=== PATIENT | male | born 1955 | race Caucasian/White ===

== ENCOUNTER 2018-07-20 12:49 | Observation (INO) | payer OTHER ==
[2018-07-20 15:49] LABS: Hematocrit 42.2 % (39.6-49.0); MCH 35.9 pg (27.0-35.0); MCV 104.3 fL (80-100); MPV 8.5 fL (7.6-11.3); RBC Red Blood Cell Count 4.05 M/uL (4.33-5.43)
[2018-07-20 15:53] LABS: Protime INR 1.05
[2018-07-20] MEDS ORDERED: ACETAMINOPHEN 325 MG TABLET PO PRN (16:16)
[2018-07-20] MEDS ORDERED: ONDANSETRON 4 MG/2 ML VIAL IV PRN (16:17)
[2018-07-20] MEDS ORDERED: POLYETHYL GLY 3350 17 GM/DOSE PO PRN (16:17)
[2018-07-20] MEDS ORDERED: DIPHENHYDRAMINE 25 MG TAB/CAP PO PRN (16:17)
[2018-07-20] MEDS ORDERED: LOPERAMIDE HCL 2 MG CAPSULE PO PRN (16:17)
[2018-07-20] MEDS ORDERED: ONDANSETRON 4 MG (ODT) TAB PO PRN (16:17)
[2018-07-20 16:36] LABS: Albumin 3.3 g/dL (3.4-5.0); Bilirubin Direct 0.3 mg/dL (0-0.2); Bilirubin Total 0.7 mg/dL (0.2-1.0); Magnesium 1.6 mg/dL (1.8-2.4); Phosphorus 3.3 mg/dL (2.5-4.9); Protein, Total 6.9 g/dL (6.4-8.2); Thyroid Stimulating Hormone 1.84 uIU/mL (0.360-3.740)
[2018-07-20] MEDS ORDERED: NACHLORIDE 0.45% 1,000 ML IV SCH (17:00)
[2018-07-20 17:11] LABS: Urine Appearance CLEAR; Urine Bilirubin NEGATIVE (NEG); Urine Blood NEGATIVE (NEG); Urine Color DK YELLOW; Urine Glucose NEGATIVE (NEG); Urine Protein NEGATIVE (NEG); Urine Specific Gravity 1.025 (1.005-1.030)
[2018-07-20] MEDS ORDERED: MAGNESIUM SULFATE 1 gm IVPB 1 GM/100 ML BAG IV ONE (17:12)
[2018-07-20 17:18] LABS: Urine Microscopic Reflex NO UMIC
--- NOTE | 2018-07-20 18:58 | RAD REPORT ---
EXAM DESCRIPTION: RAD - Chest Pa And Lat (2 Views) - 07/20/2018 6:52 pm CLINICAL HISTORY: Shortness of breath COMPARISON: February 2013 TECHNIQUE: PA and lateral views of the chest were obtained. FINDINGS: The lungs are clear of failure or infiltrate. No large mass lesion identifiable. A few sma ll granulomas are present. No gross abnormality of the mediastinum or hilum seen. Lung markings are n ot clearly different from 2013. Heart size is normal and central vasculature is within normal limit s. No pleural effusion or pneumothorax seen. No acute bony finding noted. No aortic abnormality. IMPRESSION: No acute cardiopulmonary process. No significant change from comparison.
[2018-07-20] MEDS: KCL 20 MEQ/100 mL IVPB 20 MEQ/100 ML BAG IV SCH ×2 (19:10→22:52)
--- NOTE | 2018-07-20 19:18 | RAD REPORT ---
EXAM DESCRIPTION: MRI - MRA Head Wo Cont - 07/20/2018 6:43 pm CLINICAL HISTORY: Slurred speech, left extremity weakness, CVA symptoms COMPARISON: None. TECHNIQUE: Axial and coronal 3D [id number] image acquisition was performed. 3D rotational images were generated with source and reconstruction images reviewed. Horizontal and vertical axis rotation al views generated using MIP protocol. FINDINGS: Major venous sinuses are patent. No aneurysm or vascular malformation seen. No dissection, vasculitis or other diffuse vascular process seen. Patient has a small right anterior cerebral arter y A1 segment as a normal variant. There is a very small left posterior cerebral artery P1 segment wit h most of the left [employer] supply from the large left posterior communicating artery. No stenosis or athe rosclerotic changes seen to any significant degree. IMPRESSION: MRI head examination shows no significant or suspicious finding.
--- NOTE | 2018-07-20 19:20 | RAD REPORT ---
EXAM DESCRIPTION: MRI - Brain W/Wo Cont - 07/20/2018 6:43 pm CLINICAL HISTORY: Slurred speech, left extremity weakness, CVA symptoms COMPARISON: None. TECHNIQUE: Sagittal and axial T1-weighted images were obtained. Axial PD/heavily T2-weighted and T2- FLAIR images were obtained along with axial DWI/ADC mapping sequences. Coronal heavily T2 weighted s equence obtained. Axial and coronal post-contrast T1-weighted images were also obtained. A ml Multi joseph contrast following utilized. FINDINGS: No intracranial hemorrhage or mass. In the right side of the elly there is a 10 millimeter area of abnormal diffusion signal. This has corresponding diminished signal on ADC mapping and hyper intense T2/IR signal. No other area of acute infarction seen. There is minimal chronic ischemic stewart e in the cerebral white matter. Atrophy is mild. Ventricles are in proportion to any volume loss. There is no edema or shift of midline structures. No extra-axial fluid collections. Rey-matter/whit e matter junction is preserved. Signal voids are seen as a normal finding in the major intracranial vessels. Post-contrast images show normal enhancement. No dural thickening. Mastoid air cells and paranasal sinuses are clear. 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 Minimal cerebral white matter chronic ischemic change.
--- NOTE | 2018-07-20 19:22 | RAD REPORT ---
EXAM DESCRIPTION: MRI - MRA Neck W/Wo Cont - 07/20/2018 6:43 pm COMPARISON: None. TECHNIQUE: Axial and coronal 3D [id number] image acquisition was performed. 3D rotational images were generated with source and reconstruction images reviewed. Horizontal and vertical axis rotation al views generated using MIP protocol. An 18 milliliter MultiHance contrast volume was utilized. FINDINGS: Aortic arch is bovine configuration as a normal variant. No origins stenosis. Codominant v ertebral arteries show no origins stenosis. Focal stenosis is present at the origin of the left carot id bulb. Focal bandlike 60% stenosis is seen at this site. No right-sided bulb stenosis. More distall y internal carotid artery show no suspicious findings. Bilateral common carotid artery's are unremark able. No vertebral artery abnormality. Basilar artery is unremarkable. The left carotid stenosis woul d not be a source for a brainstem CVA. IMPRESSION: Approximately 60% bandlike stenosis at the origin of the left carotid bulb. This would n ot be a cause for a brainstem CVA. The remainder the study is without significant finding.
[2018-07-20] MEDS ORDERED: PNEUMOCOCCAL VACCINE 0.5 ML IMVAC ONE (20:00)
[2018-07-20] MEDS ORDERED: INFLUENZA VACCINE (for 3y+) 0.5 ML DOSE IMVAC ONE (20:00)
[2018-07-20] MEDS ORDERED: VARENICLINE TARTRATE 0.5 MG PO PRN (20:46)
[2018-07-20] MEDS ORDERED: PANTOPRAZOLE 40MG TABLET PO SCH (21:00)
[2018-07-20] MEDS ORDERED: ENOXAPARIN 40 MG/0.4 ML SQ SCH (21:00)
[2018-07-20] MEDS ORDERED: ATORVASTATIN 20 MG TAB PO SCH (21:00)
[2018-07-20] MEDS ORDERED: CLOPIDOGREL 75 MG TABLET PO ONE (21:15)
[2018-07-20 21:50] LABS: HDL Cholesterol 49 mg/dL (40-60); LDL, Direct 90 mg/dL (100-129)
[2018-07-21 06:49] LABS: Hematocrit 40.9 % (39.6-49.0); MCH 36.5 pg (27.0-35.0); MCV 104.1 fL (80-100); MPV 8.6 fL (7.6-11.3); RBC Red Blood Cell Count 3.93 M/uL (4.33-5.43)
[2018-07-21 07:11] LABS: ALT/SGPT 30 U/L (12-78); AST/SGOT 21 U/L (15-37); Alkaline Phosphatase 62 U/L (45-117); BUN Blood Urea Nitrogen 8 mg/dL (7-18); Bicarbonate 25 mmol/L (21-32); Bilirubin Total 0.9 mg/dL (0.2-1.0); Glucose Level 88 mg/dL (74-106); Potassium 3.6 mmol/L (3.5-5.1); Protein, Total 6.4 g/dL (6.4-8.2); Sodium Level 140 mmol/L (136-145)
--- NOTE | 2018-07-21 08:11 | RAD REPORT ---
EXAM DESCRIPTION: - CP - 07/21/2018 7:33 am CLINICAL HISTORY: CVA, stroke-like symptoms, abnormal MRA neck COMPARISON: MRA carotid vasculature July 20 TECHNIQUE: Real-time sonographic evaluation of both carotid systems was performed. Rey scale and Do ppler interrogation were performed with waveform tracing bilaterally. FINDINGS: Normal high resistance waveforms are noted in both external carotid arteries. The common c arotid arteries and internal carotid arteries show normal low resistance waveforms. Mild calcified plaquing changes are present in the proximal right internal carotid artery. This does not significantly narrow the vessel lumen. Left calcified plaquing changes are present at the origin of the left ICA. This is probably the correlate to the MRA finding. MRA findings show evidence for a greater degree of stenosis than suggested by the carotid ultrasound. The bilateral carotid peak systo lic velocities and end-diastolic velocities all fall within a normal range. The bilateral ICA/ CCA ra tios are normal range as well. Not Antegrade flow seen in both vertebral arteries. Velocity values and ratios were recorded and are retained in the patient's imaging records. IMPRESSION: Calcified plaquing changes are present at the origin of the left internal carotid artery as a correlate to the left carotid MRA finding. The velocity values and ratios of the left carotid vasculature do not indicate significant stenosis. No evidence of a hemodynamically significant stenosis.
[2018-07-21] MEDS ORDERED: CLOPIDOGREL 75 MG TABLET PO SCH (09:00)
[2018-07-21] MEDS ORDERED: POTASSIUM 25 MEQ EFFERV TAB PO ONE (09:00)
[2018-07-21] MEDS ORDERED: LOSARTAN/HCTZ 50-12.5 PO SCH (09:00)
--- NOTE | 2018-07-21 09:24 | EKG ---
Test Date: 2018-07-20 Test Time: 16:13:06 Sheet Metal Operator: EWA MEASUREMENT RESULTS: Intervals: Rate: 57 NM: 134 QRSD: 126 QT: 470 QTc: 457 [place]: P: 42 NM: 134 QRS: 21 T: 3 INTERPRETIVE STATEMENTS: Sinus bradycardia Right bundle branch block Abnormal ECG Compared to ECG 03/01/2013 05:23:54 No significant changes Electronically Signed On 07-21-18 09:24:02 TREATMENT TECHNICIAN by Prashant Up
--- NOTE | 2018-07-21 12:49 | ECHO ---
HEIGHT: 5 ft 8 in WEIGHT: 186 lb 0 oz DATE OF STUDY: 07/21/[address]: Tim Galindo MD 2-DIMENSIONAL: YES M.MODE: YES DOPPLER: YES COLOR FLOW: YES TDS: NO PORTABLE: NO DEFINITY: NO BUBBLE STUDY: NO DIAGNOSIS: CEREBRAL VASCULAR ACCIDENT CARDIAC HISTORY: CATHERIZATION: YES SURGERY: NO PROSTHETIC VALVE: NO PACEMAKER: NO MEASUREMENTS (cm) DIASTOLIC (NORMALS) SYSTOLIC (NORMALS) IVSd 1.2 (0.6-1.2) LA Diam 3.8 (1.9-4.0) LVEF 57% LVIDd 4.4 (3.5-5.7) LVIDs 3.1 (2.0-3.5) %FS 29% LVPWd 1.2 (0.6-1.2) Ao Diam 3.2 (2.0-3.7) 2 DIMENSIONAL ASSESSMENT: RIGHT ATRIUM: NORMAL LEFT ATRIUM: NORMAL RIGHT VENTRICLE: NORMAL LEFT VENTRICLE: NORMAL TRICUSPID VALVE: NORMAL MITRAL VALVE: NORMAL PULMONIC VALVE: NORMAL AORTIC VALVE: NORMAL PERICARDIAL EFFUSION: NONE AORTIC ROOT: NORMAL LEFT VENTRICULAR WALL MOTION: NORMAL. DOPPLER/COLOR FLOW: MILD TRICUSPID REGURGITATION. NORMAL RIGHT VENTRICULAR SYSTOLIC PRESSURE. COMMENTS: NORMAL 2D ECHO. MILD TRICUSPID REGURGITATION. TECHNOLOGIST: LUDA ROSARIO
[2018-07-21] MEDS ORDERED: CITALOPRAM 10 MG TABLET PO SCH (20:30)
--- NOTE | 2018-07-22 07:34 | P.DS ---
Admission Date: 07/20/18 Discharge Date: 07/22/18 Disposition: ROUTINE DISCHARGE Discharge Condition: [facility] Hospital Course: MR. LANZA COMES TO ME TWO DAYS AFTER L SIDE LIP DROOP, L HAND WEAKNESS. HE IS A SMOKER. I ADMITTED HIM FOR CLINNICAL STROKE AND CONFIRMED WITH R BRAINSTEM STROKE. PLACED HIM ON PLAVIX. HE HAS ALREADY RECOVERED SIGNIFICANTLY. HE IS STABLE TO GO HOME. NOW HE IS AFRAID ENOUGH TO QUIT SMOKING. UNTIL NOW EVEN CHANTIX DID NOT WORK. Vital Signs/Physical Exam: Temp Pulse Resp BP Pulse Ox 97 F 61 18 155/96 H 94 07/21/18 08:00 07/21/18 08:00 07/21/18 08:00 07/21/18 08:00 07/21/18 08:00 Laboratory Data at Discharge: WBC 6.4 K/uL (4.3-10.9) 07/21/18 06:11 Hgb 14.3 g/dL (13.6-17.9) 07/21/18 06:11 Hct 40.9 % (39.6-49.0) 07/21/18 06:11 Plt Count 141 K/uL (152-406) L 07/21/18 06:11 PT 12.4 SECONDS (9.5-12.5) 07/20/18 15:25 INR 1.05 07/20/18 15:25 APTT 28.4 SECONDS (24.3-36.9) 07/20/18 15:25 Sodium 140 mmol/L (136-145) 07/21/18 06:11 Potassium 3.6 mmol/L (3.5-5.1) 07/21/18 06:11 BUN 8 mg/dL (7-18) 07/21/18 06:11 Creatinine 0.80 mg/dL (0.55-1.3) 07/21/18 06:11 Glucose 88 mg/dL (74-106) 07/21/18 06:11 Phosphorus 3.3 mg/dL (2.5-4.9) 07/20/18 15:25 Magnesium 2.0 mg/dL (1.8-2.4) 07/21/18 06:11 Total Bilirubin 0.9 mg/dL (0.2-1.0) 07/21/18 06:11 AST 21 U/L (15-37) 07/21/18 06:11 ALT 30 U/L (12-78) 07/21/18 06:11 Alkaline Phosphatase 62 U/L (45-117) 07/21/18 06:11 Triglycerides 80 mg/dL (<150) 07/20/18 21:20 Cholesterol 146 mg/dL (<200) 07/20/18 21:20 LDL Cholesterol Direct 90 mg/dL (100-129) L 07/20/18 21:20 HDL Cholesterol 49 mg/dL (40-60) 07/20/18 21:20 Cholesterol/HDL Ratio 2.98 07/20/18 21:20 Home Medications: Amox/Clavulanate [Augmentin 875-125 Tab*] 875 mg PO BID 07/20/18 Citalopram Hydrobromide [Citalopram HBr] 20 mg PO 30 MIN BEFORE HS 07/20/18 Omeprazole 40 mg PO ONCE 07/20/18 Varenicline Tartrate [Chantix] 0.5 mg PO PRN PRN 07/20/18 Atorvastatin Calcium [Lipitor*] 20 mg PO BEDTIME #90 tab 07/21/18 Clopidogrel Bisulfate [Plavix*] 75 mg PO DAILY #90 tablet 07/21/18 Losartan Potassium [Cozaar*] 50 mg PO DAILY #90 tablet 07/21/18 New Medications: Atorvastatin Calcium [Lipitor*] 20 mg PO BEDTIME #90 tab Clopidogrel Bisulfate [Plavix*] 75 mg PO DAILY #90 tablet Losartan Potassium [Cozaar*] 50 mg PO DAILY #90 tablet Patient Discharge Instructions: COME TO OFFICE IN 10 DAYS. Diet: AHA
== END 2018-07-21 12:30 | disposition home or self-care (01) ==
LOC: 2ND 13:31
PROVIDERS: ADMIT Internal Medicine; ATTEND Internal Medicine
DX: I63.9 Cerebral infarction, unspecified (principal); G83.24 Monoplegia of upper limb affecting left nondominant side; R47.81 Slurred speech; F17.210 Nicotine dependence, cigarettes, uncomplicated; K21.9 Gastro-esophageal reflux disease without esophagitis
CPT/HCPCS: 36415; 70544; 70549; 70553; 71046; 80053; 80061; 81003; 82248; 82306; 82607; 82962; 83735; 84100; 84443; 85027; 85610; 85730; 87040; 93005; 93306; 93880; A9577; G0378; J1650; J3475